=== PATIENT | female | born 1940 | race Caucasian/White ===

== ENCOUNTER → 2018-11-20 | Outpatient (CLI) | payer MEDICARE, OTHER | END | disposition home or self-care (01) | LOC: PCVCCLINIC 10:19 | PROVIDERS: ATTEND Internal Medicine Cardiovascular Disease | DX: I42.9 Cardiomyopathy, unspecified (principal); E78.00 Pure hypercholesterolemia, unspecified; M54.9 Dorsalgia, unspecified; R53.82 Chronic fatigue, unspecified; G47.33 Obstructive sleep apnea (adult) (pediatric); R25.1 Tremor, unspecified; Z98.890 Other specified postprocedural states; Z87.891 Personal history of nicotine dependence; Z88.1 Allergy status to other antibiotic agents | CPT/HCPCS: 36415; 80061; 93005; G0463 ==